=== PATIENT | male | born 1990 | race African-American/Black ===

== ENCOUNTER 2018-07-19 20:21 | Emergency (ER) | payer OTHER ==
[~2018-07-19] VITALS: Ht 175.3 cm; Wt 74.8 kg
[2018-07-19 20:44] LABS: HEMATOCRIT 44.4 % (42.0-52.0); HEMOGLOBIN 14.6 gm/dL (14.0-18.0); MCH 27.9 pg (26.0-34.0); MCHC 32.9 g/dL (28.0-37.0); MCV 84.7 fL (80.0-100.0); NUCLEATED RBCS 0 /100WBC; PLATELET COUNT* 224 thou/uL (150-400); RBC 5.25 mil/uL (4.50-6.00); RDW-CV 14.2 % (10.5-14.5); WBC 10.6 thou/uL (4.0-11.0)
[2018-07-19 20:51] LABS: ANION GAP 17 mmol/L (7-16); BUN 9 mg/dL (7-18); CALCIUM 9.7 mg/dL (8.5-10.1); CHLORIDE 93 mmol/L (98-107); CO2 25 mmol/L (21-32); CREATININE 1.2 mg/dL (0.6-1.3); GLUCOSE 166 mg/dL (70-99); POTASSIUM 3.8 mmol/L (3.5-5.1); SODIUM 135 mmol/L (136-145)
[2018-07-19 20:55] LABS: INR 1.1; PROTIME 11.7 Seconds (9.20-11.50)
[2018-07-19 21:00] LABS: ALBUMIN 4.7 g/dL (3.4-5.0); ALKALINE PHOSPHATASE 57 U/L (46-116); LIPASE 118 U/L (73-393); SGOT 495 U/L (15-37); SGPT 351 U/L (30-65); TOTAL BILIRUBIN 2.9 mg/dL (<0.1-1.0); TOTAL PROTEIN 8.7 g/dL (6.4-8.2); TROPONIN-I LEVEL <0.06 ng/mL (<0.06)
[2018-07-19 21:14] LABS: ABSOLUTE EOSINOPHILS 0.1 thou/uL (0.0-0.7); ABSOLUTE LYMPHOCYTES 1.3 thou/uL (0.8-5.3); ABSOLUTE MONOCYTES 0.5 thou/uL (0.0-1.2); ABSOLUTE NEUTROPHILS 8.7 thou/uL (1.6-8.1); LARGE PLATELETS FEW; PLATELET ESTIMATE ADEQUATE; TOXIC GRANULATION 1+
[2018-07-19 22:32] LABS: URINE BLOOD TRACE (Negative); URINE CLARITY CLEAR; URINE COLOR DARK YELLOW; URINE GLUCOSE-RANDOM NEGATIVE (Negative); URINE KETONES 1+ (Negative); URINE LEUKOCYTES-REFLEX NEGATIVE (Negative); URINE NITRITE-REFLEX NEGATIVE (Negative); URINE PROTEIN 1+ (Negative)
[2018-07-19 22:34] LABS: URINE BILIRUBIN 1+ (Negative)
[2018-07-19 22:36] LABS: ICTOTEST (BILI CONFIRMATORY) Negative (Negative)
[2018-07-19 22:37] LABS: ALCOHOL < 10 mg/dL (<10)
[2018-07-19 22:38] LABS: ACETAMINOPHEN < 2 ug/mL (10-30); SALICYLATE < 2.8 mg/dL (2.8-20.0)
[2018-07-19 22:39] LABS: AMP/METHAMP Negative (Negative); BARBITURATES Negative (Negative); BENZODIAZEPINES Negative (Negative); COCAINE Negative (Negative); METHADONE Negative (Negative); OPIATES Negative (Negative); PCP Negative (Negative); THC Negative (Negative)
[2018-07-19 22:53] VITALS: BP 140/100
--- NOTE | 2018-07-20 16:35 | EKG ---
[place] [address] ELECTROCARDIOGRAM REPORT Name: ANGUS HOWELL [id number] Admission: 07/19/18 Attend Phys: Discharge: 07/19/18 Date of : 86 Report #: [id number] THIS REPORT FOR: //name// [facility] ED Test Date: 2018-07-19 Test Time: 20:24:49 Pat Name: ANGUS HOWELL Department: Room: Gender: M Clinical Nursing Intern: JAYESH : 1990 Requested By: Dameon Chong Order Number: [id number] MD: Damaso Lin Measurements Intervals [place] Rate: 116 P: 69 CT: 156 QRS: 58 QRSD: 152 T: 12 QT: 388 QTc: 540 Interpretive Statements Sinus tachycardia Paired ventricular premature complexes Nonspecific intraventricular conduction delay No previous ECG available for comparison Electronically Signed On 07-20-2018 16:34:51 CDT by Damaso Lin [email or web address] <ELECTRONICALLY SIGNED> By: Damaso Lin MD, [facility] 07/20/18 1634 23 23 Damaso Lin MD, FACC /EPI
== END 2018-07-19 22:57 | disposition home or self-care (01) ==
LOC: M.ERS 20:21
PROVIDERS: Family Medicine
DX: R55 Syncope and collapse (principal); R94.5 Abnormal results of liver function studies

== ENCOUNTER 2018-09-12 23:13 | Emergency (ER) | payer OTHER ==
[~2018-09-12] VITALS: Ht 175.3 cm; Wt 76.2 kg
[2018-09-12 23:56] LABS: CALCIUM 9.9 mg/dL (8.5-10.1); CREATININE 1.4 mg/dL (0.6-1.3); POTASSIUM 3.3 mmol/L (3.5-5.1)
[2018-09-13] MEDS ORDERED: TRILEPTAL300 MG PO (00:30)
[2018-09-13 00:54] VITALS: BP 144/93
== END 2018-09-13 00:55 | disposition home or self-care (01) ==
LOC: M.ERS 23:13
PROVIDERS: Emergency Medicine
DX: R56.9 Unspecified convulsions (principal)